=== PATIENT | female | born 1995 | race Caucasian/White ===

== ENCOUNTER → 2019-10-19 10:08 | Outpatient (CLI) | payer BC | END | disposition home or self-care (01) | LOC: D.US 10:08 | PROVIDERS: ATTEND Obstetrics & Gynecology | DX: R10.11 Right upper quadrant pain (principal) ==

== ENCOUNTER → 2020-08-08 11:22 | Outpatient (CLI) | payer MEDICARE ==
[2020-01-25 12:50] VITALS: BMI 45.6
[~2020-08-08 11:22] MED LIST: ACETAMINOPHEN325 MG PO; MOTRIN600 MG PO
== END | disposition home or self-care (01) ==
LOC: D.US 11:22
PROVIDERS: ATTEND Student in an Organized Health Care Education/Training Program
DX: N63.11 Unspecified lump in the right breast, upper outer quadrant (principal)